=== PATIENT | female | born 1995 ===

== ENCOUNTER 2022-07-25 10:42 | Outpatient (CLI) | payer OTHER | END 2022-07-25 13:02 | disposition home or self-care (01) | LOC: PRENATAL 10:42 | PROVIDERS: ATTEND Obstetrics & Gynecology Maternal & Fetal Medicine | DX: O36.80X0 Pregnancy with inconclusive fetal viability, not applicable or unspecified (principal); O30.90 Multiple gestation, unspecified, unspecified trimester; Z23 Encounter for immunization; Z14.8 Genetic carrier of other disease ==

== ENCOUNTER 2022-10-08 07:53 | Outpatient (CLI) | payer OTHER | END 2022-10-08 09:32 | disposition home or self-care (01) | LOC: PRENATAL 07:53 | PROVIDERS: ATTEND Obstetrics & Gynecology Maternal & Fetal Medicine | DX: O26.849 Uterine size-date discrepancy, unspecified trimester (principal); O30.90 Multiple gestation, unspecified, unspecified trimester ==

== ENCOUNTER 2022-12-05 08:04 | Outpatient (CLI) | payer OTHER | END 2022-12-05 09:27 | disposition home or self-care (01) | LOC: PRENATAL 08:04 | PROVIDERS: ATTEND Obstetrics & Gynecology Maternal & Fetal Medicine | DX: O26.849 Uterine size-date discrepancy, unspecified trimester (principal); O36.8199 Decreased fetal movements, unspecified trimester, other fetus; Z3A.32 32 weeks gestation of pregnancy ==

== ENCOUNTER 2023-01-01 09:38 | Outpatient (CLI) | payer OTHER | END 2023-01-01 10:45 | disposition home or self-care (01) | LOC: PRENATAL 09:38 | PROVIDERS: ATTEND Obstetrics & Gynecology Maternal & Fetal Medicine | DX: O26.849 Uterine size-date discrepancy, unspecified trimester (principal); O36.8199 Decreased fetal movements, unspecified trimester, other fetus; O30.90 Multiple gestation, unspecified, unspecified trimester; Z3A.36 36 weeks gestation of pregnancy ==